=== PATIENT | male | born 1950 | race Caucasian/White ===

== ENCOUNTER → 2018-06-24 | Outpatient (CLI) | payer OTHER, BC ==
[~2018-06-24] MED LIST: GADOBUTROL 10 ML VIAL IVP ONE
== END ==
LOC: FIMAGING 07:59
PROVIDERS: ATTEND Specialist
DX: Z12.5 Encounter for screening for malignant neoplasm of prostate (principal); R97.20 Elevated prostate specific antigen [PSA]
CPT/HCPCS: 72197; 76377; A9585; 82565-PO